=== PATIENT | male | born 1965 | race Caucasian/White ===

== ENCOUNTER 2018-09-27 14:48 | Inpatient (IN) | payer OTHER ==
[2018-09-27] MEDS ORDERED: ACETAMINOPHEN 500 MG TAB PO ONE (15:01)
[2018-09-27] MEDS ORDERED: GABAPENTIN 300 MG CAP PO ONE (15:01)
[2018-09-27] MEDS ORDERED: LIDOCAINE 1% 2 ML INJ ID PRN (15:39)
[2018-09-27] MEDS ORDERED: LR 1,000 ML IV ONE (15:39)
[2018-09-27] MEDS ORDERED: METHOCARBAMOL 750 MG TAB PO PRN (19:20)
[2018-09-27] MEDS ORDERED: ceFAZolin 2 GM/DEXTROSE 100 ML IV ONE (19:30)
[2018-09-27] MEDS: oxyCODONE IR 5 MG TAB PO PRN (21:19)
[2018-09-28] MEDS ORDERED: ACETAMINOPHEN 500 MG TAB PO ONE (06:00)
[2018-09-28] MEDS ORDERED: ceFAZolin 2 GM/DEXTROSE 100 ML IV ONE (06:00)
[2018-09-28] MEDS ORDERED: GABAPENTIN 300 MG CAP PO ONE (06:00)
[2018-09-28] MEDS ORDERED: CEFAZOLIN 330 MG/ML IM SYRINGE IM ONE (06:00)
[2018-09-28] MEDS ORDERED: CHLORHEXIDINE GLUC HIBICLENS 118 ML BTL TP ONE (07:37)
[2018-09-28] MEDS ORDERED: THROMBIN (BOVINE) 5,000 UNIT VIAL TP ONE (07:37)
[2018-09-28] MEDS ORDERED: BUPIVACAINE/EPI 0.25% 30 ML SDV ONE (07:37)
[2018-09-28] MEDS ORDERED: BACITRACIN 50,000 UNITS/10 ML SYR IRR ONE (07:38)
--- NOTE | 2018-09-28 07:47 | PDHPUP ---
History & Physical Update H&P update statement: This history and physical update is based on an assessment of the patient which was completed after admission or registration (within 24 hours), but prior to the surgery/procedure. H&P update: H&P reviewed & patient examined, no change in patient's condition since H&P completed
--- NOTE | 2018-09-28 07:52 | NEUSURGPN ---
Assessment/Plan: Assessment: 53 yo male that is s/p L5/S1 JOEY 6 weeks ago that presents with lower back pain Plan: -lower back pain/hx of L5/S1 JOEY -orders in place for OR today -NPO -spoke with AMINTA Garces on 3E, and will hold abx prior to surgery for cultures if needed -PT/OT on hold -call with any questions or concerns -pt understands and agrees -CBC elevated slightly, ESR and CRP elevated as well Subjective: Awake and alert. NAD. NPO. Pt with continued lower back pain Objective: AAO x 3, PERRLA/EOMI no droop CN 2-12 grossly intact +lt touch 5/5 BUE/BLE = CDI Neuro Check Frequency: per routine Urinary Catheter in Place: No - Physician Discussed Patient with .: Terell Patient Seen by : Terell Neurosurgery Physical Exam - Vitals, I&O, Labs I and O 09/27/18 09/28/18 09/29/18 05:59 05:59 05:59 Weight 99.79 kg Other: Number of Voids Toilet 1 Vital Signs Temp Pulse Resp BP Pulse Ox 36.8 C 60 16 131/88 H 92 09/28/18 04:00 09/28/18 04:00 09/28/18 04:00 09/28/18 04:00 09/28/18 04:00 Laboratory Results 09/27/18 15:01 09/27/18 15:01 ICD10 Worksheet Patient Problems: Problems Problem Status Onset History of laminectomy Acute Lower back pain Acute - ICD10 Problem Qualifiers (1) Lower back pain (2) History of laminectomy
--- NOTE | 2018-09-28 08:18 | PDANEPAE ---
ANE Past Medical History - Cardiovascular History Hx Hypertension: No Hx Arrhythmias: No Hx Chest Pain: No Hx Coronary Artery / Peripheral Vascular Disease: No Hx CHF / Valvular Disease: No Hx Palpitations: No - Pulmonary History Hx COPD: No Hx Asthma/Reactive Airway Disease: No Hx Recent Upper Respiratory Infection: No Hx Oxygen in Use at Home: No Hx Sleep Apnea: Yes Sleep Apnea Screening Result - Last Documented: Positive - Neurologic History Hx Cerebrovascular Accident: No Hx Seizures: No Hx Dementia: No - Endocrine History Hx Diabetes: No - Renal History Hx Renal Disorders: No - Liver History Hx Hepatic Disorders: No - Neurological & Psychiatric Hx Hx Neurological and Psychiatric Disorders: No - Cancer History Hx Cancer: No - Congenital Disorder History Hx Congenital Disorders: No - GI History Hx Gastrointestinal Disorders: No - Chronic Pain History Chronic Pain: No ANE Review of Systems Review of Systems: - Exercise capacity Exercise capacity: >=4 METS METS (RN): 5 METS ANE Patient History - Allergies Allergies/Adverse Reactions: No Allergies Allergy (Verified 09/27/18 14:48) - Home Medications Home medications: home medication list seen and reviewed Home Medications: Gabapentin [Neurontin 300 MG (*)] 300 mg PO TID 09/27/18 [Last Taken 09/27/18 15 :00] Methocarbamol [Robaxin 750 mg (*)] 750 mg PO TID 09/27/18 [Last Taken 09/27/18 08:00] Multivitamins [Multivitamin (*)] 1 each PO DAILY 09/27/18 [Last Taken 09/27/18 12:00] Naproxen Sodium [Aleve 220 MG (*)] 220 - 440 mg PO TID PRN 09/27/18 [Last Taken 09/27/18 08:00] - NPO status NPO Status: no food or drink >8 hours NPO Since - Liquids (Date): 09/28/18 NPO Since - Liquids (Time): 00:00 NPO Since - Solids (Date): 09/28/18 NPO Since - Solids (Time): 00:00 - Anes Hx Anes Hx: no prior problems - Smoking Hx Smoking Status: Never smoked - Family Anes Hx Family Hx Anesthesia Complications: none. ANE Labs/Vital Signs - Labs Result Diagrams: 09/27/18 15:01 09/27/18 15:01 - Vital Signs Vital Signs: reviewed preoperatively; see RN documention for details Blood Pressure: 125/81 Heart Rate: 57 Respiratory Rate: 16 O2 Sat (%): 93 Height: 175.26 cm Weight: 99.79 kg ANE Physical Exam - Airway Neck exam: FROM Mallampati Score: Class 1 Mouth exam: normal dental/mouth exam - Pulmonary Pulmonary: clear to auscultation - Cardiovascular Cardiovascular: regular rate and rhythym - ASA Status ASA Status: I ANE Anesthesia Plan Anesthesia Plan: general endotracheal anesthesia
[2018-09-28] MEDS ORDERED: GABAPENTIN 300 MG CAP ONE (08:38)
[2018-09-28] MEDS ORDERED: ACETAMINOPHEN 500 MG TAB ONE (08:38)
[2018-09-28] MEDS ORDERED: LR 1,000 ML IV ONE (08:46)
[2018-09-28] MEDS ORDERED: MIDAZOLAM 2 MG/2 ML VIAL IVP ONE (09:11)
[2018-09-28] MEDS ORDERED: REMIFENTANIL HCL 1 MG VIAL ONE (09:17)
[2018-09-28] MEDS ORDERED: PROPOFOL/EMULSION 500 MG/50 ML BOTTLE IV ONE ×2 (09:17→10:34)
[2018-09-28] MEDS ORDERED: fentaNYL 250 MCG/5 ML INJ ONE (09:17)
[2018-09-28] MEDS ORDERED: ROCURONIUM 50 MG/5 ML VIAL ONE (09:19)
[2018-09-28] MEDS ORDERED: ONDANSETRON 4 MG/2 ML VIAL ONE (09:22)
[2018-09-28] MEDS ORDERED: PETROLAT,WHT/MIN OIL/SOD CHL 3.5 GM OPHT.OINT ONE (09:22)
[2018-09-28] MEDS ORDERED: DEXAMETHASONE 4 MG/ML VIAL ONE (09:22)
[2018-09-28] MEDS ORDERED: GLYCOPYRROLATE 0.2 MG/1 ML VIAL ONE ×2 (09:23→11:25)
[2018-09-28] MEDS ORDERED: PROPOFOL 200 MG/20 ML VIAL ONE (09:25)
[2018-09-28] MEDS ORDERED: MIDAZOLAM 2 MG/2 ML VIAL ONE (09:26)
[2018-09-28] MEDS ORDERED: ePHEDrine SULFATE 25 MG/5 ML SYR ONE (10:09)
[2018-09-28] MEDS ORDERED: ACETAMINOPHEN 500 MG TAB PO PRN (11:14)
[2018-09-28] MEDS ORDERED: ALBUTEROL 3 ML DEYVIAL IH PRN (11:14)
[2018-09-28] MEDS ORDERED: NALOXONE HCL 0.4 MG/ML INJ IVP PRN (11:14)
[2018-09-28] MEDS ORDERED: LABETALOL HCL 20 MG/4 ML INJ IVP PRN (11:14)
[2018-09-28] MEDS ORDERED: METOCLOPRAMIDE 10 MG/2 ML VIAL IVP PRN (11:14)
[2018-09-28] MEDS ORDERED: DEXAMETHASONE 4 MG/ML VIAL IVP PRN (11:14)
[2018-09-28] MEDS ORDERED: ONDANSETRON 4 MG/2 ML VIAL IVP PRN ×2 (11:14→12:02)
[2018-09-28] MEDS ORDERED: oxyCODONE IR 5 MG TAB PO PRN (11:14)
[2018-09-28] MEDS ORDERED: LR 500 ML IV PRN (11:14)
[2018-09-28] MEDS ORDERED: PROMETHAZINE HCL 25 MG/ML INJ IVP PRN (11:14)
[2018-09-28] MEDS ORDERED: PHENYLEPHRINE HCL 100 MCG/ML SYR IVP PRN (11:14)
[2018-09-28] MEDS ORDERED: MEPERIDINE 25 MG/0.5 ML AMP IVP PRN (11:14)
[2018-09-28] MEDS ORDERED: VANCOMYCIN 1.5 GM in D5W 250 ML IV SCH (11:30)
[2018-09-28] MEDS ORDERED: fentaNYL 100 MCG/2 ML INJ ONE (11:52)
[2018-09-28] MEDS: fentaNYL 100 MCG/2 ML INJ IVP PRN ×2 (11:54→12:09)
[2018-09-28] MEDS ORDERED: diphenhydrAMINE 25 MG CAP PO PRN (11:58)
[2018-09-28] MEDS ORDERED: HYDROmorphONE/DILAUDID 1 MG/ML INJ IVP PRN (11:58)
[2018-09-28] MEDS ORDERED: LACTULOSE 20 GM/30 ML UDCUP PO PRN (11:58)
[2018-09-28] MEDS ORDERED: POLYETHYLENE GLYCOL 3350 17 GM PKT PO PRN (11:58)
[2018-09-28] MEDS ORDERED: BISACODYL 10 MG SUPP PR PRN (11:58)
[2018-09-28] MEDS ORDERED: MAGNESIUM HYDROXIDE 30 ML UDCUP PO PRN (11:58)
[2018-09-28] MEDS ORDERED: NS 1,000 ML IV SCH (12:00)
--- NOTE | 2018-09-28 12:05 | POSTOPPROG ---
Post Op Note Date of Operation: 09/28/18 Surgeon: Cheo Figueredo Insurance Investigator: ELVIN Roberts Anesthesiologist: MD Maria Del Carmen Anesthesia: GET(General Endotracheal), Local (Specify) Pre-op Diagnosis: lumbar spine pain Post-op Diagnosis: lumbar spine pain, possible infection Indication: pain, MRI and labs Procedure: L spine wash out with hx of L5/S1 JOEY Findings: see op report Inf/Abcess present in the surg proc area at time of surgery?: Yes Depth: Deep Incisional (Fascial) EBL: 50-100 Total fluids administered: see anesthesia record Complications: none
--- NOTE | 2018-09-28 12:07 | SOAPPROG ---
SOAP Progress Note Assessment/Plan: Post Op Visit S: Awake and alert. Pt with expected lower back pain O: AFVSS/PERRLA/EOMI no droop CN 2-12 grossly intact +lt touch 5/5 BUE/BLE = CDI A/P: 53 yo male that is s/p L5/S1 washout -suspect infection -cultures and GS pending -spoke with Dr Brooklynn Urbano from ID for an eval -call with any questions or concerns -abx per ID -pt understands and agrees Objective: Vital Signs Temp Pulse Resp BP Pulse Ox 35.6 C L 57 L 16 140/85 H 100 09/28/18 11:36 09/28/18 09:22 09/28/18 09:22 09/28/18 11:39 09/28/18 11:39 Laboratory Results 09/27/18 15:01 09/27/18 15:01 09/27/18 09/28/18 09/29/18 05:59 05:59 05:59 Intake Total 850 Output Total 10 Balance 840 ICD10 Worksheet Patient Problems: Problems Problem Status Onset History of laminectomy Acute Infection of lumbar spine Acute Lower back pain Acute - ICD10 Problem Qualifiers (1) Lower back pain Qualifiers: Chronicity: unspecified (2) History of laminectomy (3) Infection of lumbar spine
[2018-09-28] MEDS ORDERED: HYDROmorphONE/DILAUDID 2 MG/ML INJ ONE (12:40)
[2018-09-28] MEDS: HYDROmorphONE/DILAUDID 2 MG/ML INJ IVP PRN ×2 (12:43→13:06)
--- NOTE | 2018-09-28 13:12 | POSTANESTH ---
Post Anesthetic Evaluation Cardiovascular Status: Normal, Stable Respiratory Status: Normal, Stable Level of Consciousness/Mental Status: Can Participate in Eval Pain Control: Adequate, Prn Tx Ordered Nausea/Vomiting Control: Adequate, Prn Tx Ordered Complications Possibly Related to Anesthesia: None Noted
--- NOTE | 2018-09-28 13:54 | GOP ---
DATE OF OPERATION: 09/27/2018 SURGEON: Joselito Figueredo MD NEUROSURGEON: Joselito Figueredo MD. VP SECURITY: Sanford Roberts PA-C PREOPERATIVE DIAGNOSIS: Recurrent disk herniation, L5-S1. POSTOPERATIVE DIAGNOSIS: Infected recurrent disk herniation, L5-S1. PROCEDURE PERFORMED: Redo lumbar exploration, L5-S1, and recurrent disk herniation, L5-S1 (25356), d rainage of deep subfascial infection lumbar spine (no code assigned to this), microscope, fluoroscopy . FINDINGS: ESTIMATED BLOOD LOSS: 25 cc. DESCRIPTION OF PROCEDURE: Patient was taken to the operating room, placed in supine position. Gener al anesthesia was begun. He was flipped prone onto the Chas frame. Care was taken to pad all poin ts of contact. His incision from the prior surgery was clean, dry, and intact. There was no evidenc e of infection. He was sterilely prepped and draped in usual fashion. We opened the prior incision, extended it rostrally and caudally about 3-4 mm on either side, making it a total length of about an inch and a half. It had previously been about 1 inch long. We used no preoperative antibiotics and no intraoperative antibiotics until cultures were taken. We exposed him by the prior fas cial sutures. These were removed. We then worked our way down to the previous laminotomy at L5-S1, and just above the L5-S1 disk, there was some fluid present that was cloudy and consistent with infec tion. It is unclear whether this represented a true abscess or not, but there was a small amount of fluid there and we cultured this. I then began exposing the S1 root. I could appreciate the S1 root in the lateral recess and drilled a further laminotomy of S1 and a further medial facetectomy of L5- S1 and based upon his MRI this was safe to do. We widened our exposure and swept our way underneath the S1 root under the microscope and some free disc fragment was removed. We took this material out, but there was also a large amount of granulation tissue. It was very unusual, so it was a recurrent disk herniation and we removed the disc, but most of the material on the spinal canal was granulatio n tissue, was not jesus pus, but looked very unusual. There were a few pieces that looked somewhat l ikes snot or mucus coming out, but well organized with some tensile strength. We continued working o ur way under the thecal sac removing this material. We got quite a lot of material out. The disk it self also morphologically was most consistent with infection. The cartilaginous endplates did not ap pear competent, and we removed more of the central disc material. We did not radically remove the ca rtilaginous endplates themselves, but a lot of them just simply fell out as we were cleaning up the d isk space. We sent all of this tissue for specimen to microbiology for both Gram stain and culture a nd will await those results. After culturing all this tissue, we gave the patient 2 g of Ancef. At the conclusion of the case, we had ordered a vancomycin infusion. We irrigated the disk space with l arge amounts of bacitracin, and it was my feeling that this represented an infected recurrent disk at L5-S1. We closed the incision in multiple layers using Vicryl sutures. Our intraoperative findings were consistent with what we had seen on the MRI. He did continue to have chronic bone spurring com ing off the S1 vertebral body pushing into the thecal sac and much of the granulation tissue was loca steven in the space created by this chronic central osteophytic protrusion into the canal. We did not r adically remove this. It was something I could feel with a ball-tip probe, but it was located more i n the central spinal canal at L5-S1. It may prove that in time the patient will need to consider fus ion of his lumbar spine to correct the abnormalities in his back, but we will consult ID and get thei r opinion prior to making any decisions about how to further treat him. COMPLICATIONS: None. INDICATIONS FOR PROCEDURE: This patient is a 53-year-old gentleman who does in fact have a terrible looking lumbar spine with severe disk degenerative changes at L3-4, L4-5, and L5-S1 with spondylolist hesis at L4, L5, S1, who presented to my office a couple of months ago with severe left S1 radiculopa thy and a disk herniation there. The disk herniation was superimposed on chronic spondylosis and DDD at L5-S1. He had a large bone spur coming off the S1 vertebral body. There was also a free disc fr agment herniation. I suggested surgery. He has a significant lateral recess stenosis at L4-5 and fa cet arthropathy, and spondylolisthesis, but our hope was to avoid fusion. It was my feeling that if we sought to do fusion surgery he would likely need to have a 3 level, so it was obviously my hope th at a simple microdiskectomy might help him. He understood my feelings about his lumbar spine and my suggestion of a microdiskectomy, but he also knew he had other larger structural problems in the low back, but he underwent an uncomplicated L5-S1 microdiskectomy. Postoperatively, he did relatively we ll. He was not doing perfectly, but over the last couple weeks, he has developed increasingly just s evere presacral, low back pain with radiating cramping into principally the left calf, but with also a few right-sided symptoms, but his chief complaint is that of severe axial low back pain. He compla ined of no inflammatory reactions. No fevers, no sweats, no chills, and his MRI was read as a large recurrent disk herniation at L5-S1 creating severe stenosis. I thought the MRI looked unusual, could be consistent with infection as there was some fluid in the disk space. It was not entirely clear t o me what we were seeing on the MRI and so we checked some labs. His inflammatory markers were eleva steven. CRP and sedimentation rate were both increased. His white blood cell count was 10.49, and once these labs became apparent, I felt that he was almost certainly infected. We saw him in the office yesterday, and I was doing another surgery and we had booked him for an emergency re-exploration at L 5-S1 yesterday and at the time that we booked him, he was supposed to follow in my room. By the time we finished with our case yesterday, the OR told me there would be a slight delay before starting hi s case, and that is when I first spoke to the patient. He had been n.p.o. all day and was anxious to proceed. I was then later informed that it was going to be 2 hours, which I then later informed the patient that it was going to be 2 hours until we could do it, and as is common, it became clear in a short period of time that it was going to be longer. I was later informed that it was going to be 9 o'clock or later last night to do surgery, and we offered, because of the OR delays and after room c ases (which is a normal part of the operating room experience after hours), that it might be best to simply do his surgery today. The OR did arrange for me to follow myself this morning, and we fed the patient. It was at about the time that we fed the patient that his laboratory values became apparen t that this could represent infection. He had no again systemic complaints and he was doing fine. Fabrice salazar just had severe presacral pain, and he was admitted overnight for pain control for surgery this mor leobardo. I informed him of his laboratory values this morning and expressed my opinion that he might in deed be infected and he was aware of this. The risks of CSF leak, nerve injury, and possible need fo r fusion surgery were discussed. He knew that more extensive surgery may be necessary, and if it was indeed infected, that additional surgery is sometimes needed for that. He wanted to proceed despite the risks. /[id number]/MODL
[2018-09-28] MEDS: oxyCODONE IR 5 MG TAB PO PRN ×3 (14:10→22:34)
[2018-09-28] MEDS: METHOCARBAMOL 750 MG TAB PO SCH ×2 (14:10→21:37)
[2018-09-28] MEDS: GABAPENTIN 300 MG CAP PO SCH ×2 (15:09→21:37)
--- NOTE | 2018-09-28 18:52 | GCON ---
INFECTIOUS DISEASE CONSULTATION. DATE OF CONSULTATION: 09/28/2018 REQUESTING PHYSICIAN: Joselito Figueredo MD REASON FOR CONSULTATION: Postoperative back infection. HISTORY OF PRESENT ILLNESS: The patient is a 53-year-old male who underwent L5-S1 microdiskectomy ap proximately 6 weeks ago, who I am asked to see in consultation for postoperative back infection. The patient describes doing well initially postoperatively but over the last 2 weeks had developed incre asing low back pain. This was not associated with significant radicular symptoms. The pain was such that he could no longer ambulate. He did not have fever, chills or night sweats. He was seen in [facility] by Neurosurgery and noted to have elevated inflammatory markers as well as a mild leukocytosis . An MRI had been performed, which is reported to show recurrent disk herniation at L5-S1 but this w as felt to be unusual in appearance with concern for infection as there was fluid in the disk space. Based on those findings, patient was taken to the operating room earlier today for lumbar exploratio n. Intraoperatively, the patient was noted to have cloudy fluid consistent with infection which trac ked below the fascial layers and deep to the disk space. There were significant amounts of granulati on tissue which had an atypical appearance present. The disk space was felt to be compatible with in fection and central disk material was removed. The patient was given jesse procedure cefazolin and va ncomycin. Gram stains from the operative specimens are all showing presence of a gram-positive cocco bacillus. The patient did not note any problems with incisional healing or wound drainage postoperat ively. Given the above findings, I am now asked to assist in his ongoing management. PAST MEDICAL HISTORY: Degenerative disk disease as above. PAST SURGICAL HISTORY: Microdiskectomy as above. CURRENT MEDICATIONS: Vancomycin 1.5 g IV x1, cefazolin 2 g IV x1, Lovenox 40 mg subcu daily, Pepcid 20 mg p.o. twice daily, Neurontin 300 mg p.o. three times daily, Dilaudid as needed for pain, Robaxin 750 mg p.o. three times daily, morphine as needed for pain. ALLERGIES: No known drug allergies. SOCIAL HISTORY: The patient does not smoke or drink significant alcohol. No recent travel. FAMILY HISTORY: Ovarian cancer. REVIEW OF SYSTEMS: Outside that noted in the HPI, remainder of a 10-system review is unremarkable. PHYSICAL EXAMINATION: VITAL SIGNS: Temperature 36.5, heart rate 67, respiratory rate 14, blood pres sure 144/91, oxygen saturation 94% on room air. GENERAL: Patient is an obese male in no acute distr ess. He appears nontoxic. HEENT: There is no scleral icterus, conjunctival injection, or conjuncti nuno petechiae. Oropharynx shows moist mucous membranes. Dentition is in good repair. There is no n esperanza discharge. There is no tenderness over the frontal maxillary or mastoid area. NECK: Supple wi thout palpable lymphadenopathy or thyromegaly. CHEST: Clear to auscultation bilaterally without adv entitious sounds. Respiratory effort is normal. CARDIOVASCULAR: Regular rate and rhythm without mu rmurs, gallops, or rubs. ABDOMEN: Soft, nontender, nondistended. There is no palpable organomegaly . Bowel sounds are present. MUSCULOSKELETAL: There is no cyanosis, clubbing, or edema. BACK: The re is a surgical dressing in place over the lower lumbar spine. There is no palpable tenderness surr ounding this region. NEUROLOGIC: The patient is alert and interacts appropriately with examiner. C ranial nerves 2-12 are grossly intact. Sensation is grossly intact. Muscle tone and bulk are normal . SKIN: No rashes present. No stigmata of endocarditis. Skin is warm and dry to touch. LYMPHATIC S: No cervical or supraclavicular nodes palpable. LABORATORY DATA: White blood cell count 10.5, hematocrit 43.5, platelets 299, ESR 46, serum creatini ne 0.7, AST 39, ALT 69, bilirubin 0.4, alkaline phosphatase 76, CRP 53.2. Gram stain from the operat concepcion specimens all showing white blood cells and gram-positive coccobacilli. IMPRESSION: 1. Postoperative back infection involving disk space status post incision and drainage: Gram stains are also showing gram-positive coccobacilli. Will await further identification of organism in micro biology lab. Considerations would include typical gram-positive meg, such as Staphylococcus aureus or group A Streptococcus, although morphology is unusual for either of these. P. acnes or corynebac terium species would also be a consideration in the postoperative setting. Corynebacterium striatum would be a consideration as a potential cause of postoperative infection. RECOMMENDATIONS: 1. Vancomycin 1.5 g IV q.12 hours. 2. Await further culture data for identification of bacterial species. 3. Final antibiotic choice will be determined by culture data. Likely he will require 8 weeks of IV antibiotic therapy based on above findings. 4. Risks and benefits of PICC line were discussed with patient. Will await additional culture data prior to placement. 5. Clinical findings and plan were discussed with patient and Dr. Figueredo today. 6. Thank you for this consultation. We will continue to follow the patient with you. /[id number]/MODL
[2018-09-28] MEDS: ACETAMINOPHEN 500 MG TAB PO SCH (21:37)
[2018-09-28] MEDS: FAMOTIDINE 20 MG TAB PO SCH (21:37)
[2018-09-28] MEDS: SENNOSIDES/DOCUSATE SODIUM TAB PO SCH (21:37)
[2018-09-28] MEDS: VANCOMYCIN 1.5 GM in D5W 250 ML IV SCH (21:39)
[2018-09-29 05:10] LABS: PLATELET COUNT 285 10^3/uL (150-400)
[2018-09-29] MEDS: oxyCODONE IR 5 MG TAB PO PRN ×4 (07:15→22:06)
[2018-09-29] MEDS: SENNOSIDES/DOCUSATE SODIUM TAB PO SCH ×2 (08:35→21:57)
[2018-09-29] MEDS: GABAPENTIN 300 MG CAP PO SCH ×3 (08:35→21:59)
[2018-09-29] MEDS: METHOCARBAMOL 750 MG TAB PO SCH ×3 (08:35→21:59)
[2018-09-29] MEDS: FAMOTIDINE 20 MG TAB PO SCH ×2 (08:35→21:59)
[2018-09-29] MEDS: VANCOMYCIN 1.5 GM in D5W 250 ML IV SCH ×2 (09:06→22:06)
[2018-09-29] MEDS: ACETAMINOPHEN 500 MG TAB PO SCH ×3 (09:07→21:58)
--- NOTE | 2018-09-29 09:36 | NEUSURGPN ---
Assessment/Plan: Assessment: 53 yo male that is s/p L5/S1 JOEY 6 weeks ago that presents with lower back pain now POD1 from exploration for recurrent dis herniation and washout L5/S1 Plan: -lower back pain/hx of L5/S1 JOEY -Gram stain shows gram + coccibacilli, appreciate ID consultation and recommendation for abx. Final cx pending, -call with any questions or concerns -pt understands and agrees -Optimize pain management Subjective: low incisional site tenderness Objective: AAO x 3, PERRLA/EOMI no droop CN 2-12 grossly intact +lt touch 5/5 BUE/BLE = CDI Neurosurgery Physical Exam - Vitals, I&O, Labs I and O 09/28/18 09/29/18 09/30/18 05:59 05:59 05:59 Intake Total 3000 Output Total 760 Balance 2240 Weight 99.79 kg 99.79 kg Intake: Oral (ml) 2150 IV Intake (ml) 850 Output: Urine (ml) 750 Toilet 750 Estimated Blood Loss (ml) 10 Other: Intake Quantity Yes Sufficient Number of Voids Toilet 1 4 Number of Stools Toilet 0 Microbiology 09/28/18 10:10 Gram Stain - Final Back - Tissue 09/28/18 10:10 Gram Stain - Final Back - Eswab 09/28/18 10:10 Gram Stain - Final Back - Eswab Vital Signs Temp Pulse Resp BP Pulse Ox 37.1 C 71 16 147/93 H 94 09/29/18 08:00 09/29/18 08:00 09/29/18 08:00 09/29/18 08:00 09/29/18 08:00 Laboratory Results 09/29/18 04:26 09/29/18 04:26 ICD10 Worksheet Patient Problems: Problems Problem Status Onset History of laminectomy Acute Infection of lumbar spine Acute Lower back pain Acute
--- NOTE | 2018-09-29 14:09 | ASMTCMCOM ---
CM Note CM Note Notes: Pt is a 53 y/o man admitted for a lumber incision/drainage. Pt has a lumbar infection. Pt had a L5 - S1 a couple of weeks ago. Therapies have cleared pt without any needs. ID is consulting on this case. Pt is currently on iv vanco. Pt will most likely need ivabx for 8 weeks. Referral sent to [facility]. [facility] accept. Sonia sylvester/ [facility] met w/ pt. Additional referrals sent to HC agencies. Pt has 'all savers' for insurance. CM to follow. Plan: [facility] FONG; RN Date Signed: 09/29/2018 02:08 PM Electronically Signed By:SUSIE Whittington
--- NOTE | 2018-09-29 14:58 | ASMTCMCOM ---
CM Note CM Note Notes: 23/05 [facility] is able to accept to admin ivabx. 23/05 [facility] has been in contact w/ [facility]. Date Signed: 09/29/2018 02:58 PM Electronically Signed By:SUSIE Whittington
--- NOTE | 2018-09-29 15:27 | PDMN ---
Medical Necessity Medical necessity: [facility] general admission: lumbar infection OP: deep incisional Lumbar spine washout with hx of L5/S1 JOEY Id consult completed : need for IV abx- PICC line needs to be placed - awaiting cultures, status changed to INPT 09/29/18 for ongoing med nec.
--- NOTE | 2018-09-29 15:47 | PCMIDPN ---
Assessment/Plan: Assessment: Postoperative back infection. Coccobacilli seen on all Gram stains of operative samples. Cultures are not growing yet. Will continue on empiric IV vancomycin at present. Clinically the patient is stable. Plan: 1. Continue IV vancomycin at present dose. 2. Obtain Vanco trough prior to the 4th dose. 3. Follow up on culture data 09/29/18 15:45 Subjective: Patient is resting in his bed in his hospital room. He has been walking around the halls earlier today. Continued back pain which he suspects is postoperative. No fevers or chills. Objective: Vancomycin # 1 Vital Signs Temp Pulse Resp BP Pulse Ox 37.0 C 59 L 16 142/98 H 92 09/29/18 12:00 09/29/18 12:00 09/29/18 12:00 09/29/18 12:00 09/29/18 12:00 Microbiology 09/28/18 10:10 Gram Stain - Final Back - Tissue 09/28/18 10:10 Gram Stain - Final Back - Eswab 09/28/18 10:10 Gram Stain - Final Back - Eswab Laboratory Results 09/29/18 04:26 09/29/18 04:26 09/28/18 09/29/18 09/30/18 05:59 05:59 05:59 Intake Total 3000 Output Total 760 Balance 2240 ESR 46 MM/HR (0-20) H 09/27/18 15:01 C-Reactive Protein 53.2 mg/L (<10.0) H 09/27/18 15:01 - Physical Exam General Appearance: WD/WN, alert, no apparent distress, non-toxic Respiratory: lungs clear, normal breath sounds, No respiratory distress Cardiac/Chest: regular rate, rhythm, No tachycardia Skin: normal color, warm/dry, No rash Neuro/Psych: alert, normal mood/affect, oriented x 3 ICD10 Worksheet Patient Problems: Problems Problem Status Onset History of laminectomy Acute Infection of lumbar spine Acute Lower back pain Acute
--- NOTE | 2018-09-30 08:11 | NEUSURGPN ---
Assessment/Plan: Assessment: 53 yo male that is s/p L5/S1 JOEY 6 weeks ago that presents with lower back pain now POD2 from exploration for recurrent disc herniation and washout L5/S1 Plan: -lower back pain/hx of L5/S1 JOEY -optimize pain management. -Gram stain shows gram + coccibacilli, appreciate ID consultation and recommendation for abx. Final cx pending, NGTD -continue Vanc per ID, plan PICC today -Pt ready to DC once abx finalized, appreciate ID recs -call with any questions or concerns dw Dr. Figueredo. Subjective: no weakness, numbness, tingling. pain significant but controlled. wants to go home but also concerned that he wont be able to take care of himself at home as he lives alone. Objective: NAD AAOx4 VSS PEARLA MAEx4, 03/04= SILT incision CDI - Physician Discussed Patient with : Terell Neurosurgery Physical Exam - Vitals, I&O, Labs I and O 09/29/18 09/30/18 10/01/18 05:59 05:59 05:59 Intake Total 3000 1300 Output Total 760 Balance 2240 1300 Weight 99.79 kg Intake: Oral (ml) 2150 1300 IV Intake (ml) 850 Output: Urine (ml) 750 Toilet 750 Estimated Blood Loss (ml) 10 Other: Intake Quantity Yes Sufficient Number of Voids Toilet 4 4 Number of Stools Toilet 0 Microbiology 09/28/18 10:10 Gram Stain - Final Back - Tissue 09/28/18 10:10 Gram Stain - Final Back - Eswab 09/28/18 10:10 Gram Stain - Final Back - Eswab Vital Signs Temp Pulse Resp BP Pulse Ox 36.8 C 68 16 153/93 H 93 09/29/18 23:10 09/29/18 23:10 09/29/18 23:10 09/29/18 23:10 09/29/18 23:10 Laboratory Results 09/29/18 04:26 09/29/18 04:26 ICD10 Worksheet Patient Problems: Problems Problem Status Onset History of laminectomy Acute Infection of lumbar spine Acute Lower back pain Acute
[2018-09-30] MEDS: METHOCARBAMOL 750 MG TAB PO SCH ×3 (08:43→21:57)
[2018-09-30] MEDS: oxyCODONE IR 5 MG TAB PO PRN ×4 (08:43→21:57)
[2018-09-30] MEDS: GABAPENTIN 300 MG CAP PO SCH ×3 (08:43→21:57)
[2018-09-30] MEDS: FAMOTIDINE 20 MG TAB PO SCH ×2 (08:44→21:58)
[2018-09-30] MEDS: SENNOSIDES/DOCUSATE SODIUM TAB PO SCH ×2 (08:44→21:56)
[2018-09-30] MEDS: ACETAMINOPHEN 500 MG TAB PO SCH ×3 (09:50→21:56)
[2018-09-30] MEDS: VANCOMYCIN 1.5 GM in D5W 250 ML IV SCH ×2 (09:50→21:56)
[2018-09-30] MEDS ORDERED: ALTEPLASE 2 MG VIAL IVP PRN (11:22)
--- NOTE | 2018-09-30 12:23 | ASMTCMCOM ---
CM Note CM Note Notes: Pt's medical status has changed due to him requiring endovascular aortic repair. Hospitalist is requesting SNF. Pt is asleep and CM unable to arouse him to discuss possible SNF's with him. Family arriving this afternoon. Referrals will be sent out now with perhaps other's added after CM can speak to pt and family. D/C Plan: SNF Date Signed: 09/30/2018 12:23 PM Electronically Signed By:Sarah oDminguez
--- NOTE | 2018-09-30 16:35 | PCMIDPN ---
Assessment/Plan: Assessment: Postoperative back infection following a micro diskectomy. Coccobacilli seen on all Gram stains of operative samples. Morphology most closely resembles C. acnes. This may require a few more days in culture. Cultures are not growing yet. Will continue on empiric IV vancomycin at present. Clinically the patient is stable. Options for treatment include IV vancomycin or daptomycin. Plan: 1. Continue IV vancomycin at present dose. 2. Obtain Vanco trough prior to the 4th dose. 3. Follow up on culture data Subjective: Patient is resting in his hospital bed. He woke up this morning and some significant pain. This is under control by lunchtime. No fevers or chills. Able to ambulate around the hallway. Patient does live alone and independently. His sister is coming in on Tuesday to help take care of him during his convalescence. Objective: Vancomycin # 2 Vital Signs Temp Pulse Resp BP Pulse Ox 36.5 C 74 16 144/103 H 96 09/30/18 15:44 09/30/18 15:44 09/30/18 15:44 09/30/18 15:44 09/30/18 15:44 Microbiology 09/28/18 10:10 Gram Stain - Final Back - Tissue 09/28/18 10:10 Gram Stain - Final Back - Eswab 09/28/18 10:10 Gram Stain - Final Back - Eswab Laboratory Results 09/29/18 04:26 09/29/18 04:26 09/29/18 09/30/18 10/01/18 05:59 05:59 05:59 Intake Total 3000 1300 Output Total 760 Balance 2240 1300 ESR 46 MM/HR (0-20) H 09/27/18 15:01 C-Reactive Protein 53.2 mg/L (<10.0) H 09/27/18 15:01 - Physical Exam General Appearance: WD/WN, alert, no apparent distress, non-toxic Respiratory: lungs clear, normal breath sounds, No respiratory distress Cardiac/Chest: regular rate, rhythm, No tachycardia Skin: normal color, warm/dry, No rash Neuro/Psych: alert, normal mood/affect, oriented x 3 ICD10 Worksheet Patient Problems: Problems Problem Status Onset History of laminectomy Acute Infection of lumbar spine Acute Lower back pain Acute
[2018-10-01] MEDS: oxyCODONE IR 5 MG TAB PO PRN ×5 (04:53→22:12)
[2018-10-01] MEDS: ENOXAPARIN 40 MG/0.4 ML SYR SC SCH (08:41)
[2018-10-01] MEDS: FAMOTIDINE 20 MG TAB PO SCH ×2 (08:42→21:44)
[2018-10-01] MEDS: VANCOMYCIN 1.5 GM in D5W 250 ML IV SCH ×2 (08:42→22:04)
[2018-10-01] MEDS: SENNOSIDES/DOCUSATE SODIUM TAB PO SCH ×2 (08:42→21:44)
[2018-10-01] MEDS: METHOCARBAMOL 750 MG TAB PO SCH ×3 (08:42→21:44)
[2018-10-01] MEDS: GABAPENTIN 300 MG CAP PO SCH ×3 (08:42→21:44)
[2018-10-01] MEDS: ACETAMINOPHEN 500 MG TAB PO SCH ×3 (10:01→22:04)
--- NOTE | 2018-10-01 13:58 | NEUSURGPN ---
Assessment/Plan: Assessment: 53 yo male that is s/p L5/S1 JOEY 6 weeks ago that presents with lower back pain now POD3 from exploration for recurrent disc herniation and washout L5/S1 Plan: -lower back pain/hx of L5/S1 JOEY -optimize pain management. -Gram stain shows gram + coccibacilli, appreciate ID consultation and recommendation for abx. Final cx pending,ID suspect C. acnes which is slow growing. -continue Vanc per ID, picc placed -Pt ready to DC once abx finalized, appreciate ID recs, likely tomorrow -call with any questions or concerns dw Dr. Figueredo. Subjective: low back pain improved slightly today. Doing better with pain control. Objective: NAD AAOx4 VSS PEARLA MAEx4, 5/5= SILT incision CDI - Physician Discussed Patient with : Terell Neurosurgery Physical Exam - Vitals, I&O, Labs I and O 09/30/18 10/01/18 10/02/18 05:59 05:59 05:59 Intake Total 1300 3000 500 Balance 1300 3000 500 Intake: Oral (ml) 1300 2500 500 IV Infused (ml) 500 Vancomycin 1.5 gm In D5w 500 250 ml @ 166.67 mls/hr IV Q12H [facility] Rx#:[id number] Other: Intake Quantity Yes Sufficient Number of Voids Toilet 4 3 Microbiology 09/28/18 10:10 Gram Stain - Final Back - Eswab 09/28/18 10:10 Gram Stain - Final Back - Eswab 09/28/18 10:10 Gram Stain - Final Back - Tissue Vital Signs Temp Pulse Resp BP Pulse Ox 36.9 C 76 16 142/91 H 96 10/01/18 07:57 10/01/18 07:57 10/01/18 07:57 10/01/18 07:57 10/01/18 07:57 Laboratory Results 09/29/18 04:26 10/01/18 04:55 ICD10 Worksheet Patient Problems: Problems Problem Status Onset History of laminectomy Acute Infection of lumbar spine Acute Lower back pain Acute
--- NOTE | 2018-10-01 15:11 | PCMIDPN ---
Assessment/Plan: Assessment: Postoperative back infection following a micro diskectomy. Coccobacilli seen on all Gram stains of operative samples. Morphology most closely resembles C. acnes. Cultures are growing gram-positive anaerobic rods. Will continue on empiric IV vancomycin at present. Clinically the patient is stable. Options for treatment include IV vancomycin or daptomycin. Plan: 1. Continue IV vancomycin at present dose. 2. Follow up on culture data 10/01/18 15:08 Subjective: Patient is ambulating around his room. No new complaints. No fevers or chills. Objective: Vancomycin # 3 Vital Signs Temp Pulse Resp BP Pulse Ox 36.9 C 76 16 142/91 H 96 10/01/18 07:57 10/01/18 07:57 10/01/18 07:57 10/01/18 07:57 10/01/18 07:57 Microbiology 09/28/18 10:10 Gram Stain - Final Back - Eswab 09/28/18 10:10 Gram Stain - Final Back - Eswab 09/28/18 10:10 Gram Stain - Final Back - Tissue Laboratory Results 09/29/18 04:26 10/01/18 04:55 09/30/18 10/01/18 10/02/18 05:59 05:59 05:59 Intake Total 1300 3000 500 Balance 1300 3000 500 ESR 46 MM/HR (0-20) H 09/27/18 15:01 C-Reactive Protein 53.2 mg/L (<10.0) H 09/27/18 15:01 - Physical Exam General Appearance: WD/WN, alert, no apparent distress, non-toxic Respiratory: lungs clear, normal breath sounds Cardiac/Chest: regular rate, rhythm, No tachycardia Skin: normal color, warm/dry, No rash Neuro/Psych: alert, normal mood/affect, oriented x 3 ICD10 Worksheet Patient Problems: Problems Problem Status Onset History of laminectomy Acute Infection of lumbar spine Acute Lower back pain Acute
[2018-10-02] MEDS: oxyCODONE IR 5 MG TAB PO PRN ×3 (01:13→13:02)
[2018-10-02 07:34] VITALS: BP 142/88
--- NOTE | 2018-10-02 08:00 | NEUSURGPN ---
Date of Surgery: 09/28/18 Post Op Day: 4 Assessment/Plan: Assessment: 53 yo male that is s/p L5/S1 JOEY 6 weeks ago that presents with lower back pain now POD#4 from exploration for recurrent disc herniation and washout L5/S1 Plan: -lower back pain/hx of L5/S1 JOEY-better with pain medications -optimize pain management with current plan-doing ok -Gram stain shows gram + coccibacilli, appreciate ID consultation and recommendation for abx. Final cx pending, ID suspect ?P. acnes which is slow growing -continue Vanc per ID, PICC placed already -Pt ready to DC once abx finalized, appreciate ID recs, likely today-RN to call me once cleared and I can work on dc -call with any questions or concerns -d/w and seen by Dr. Figueredo -pt understands and agrees Subjective: Awake and alert. Pt stated pain is better. No tabor/neck/chest/abd or gu complaints. No f/c/n/v/d. Objective: NAD/AAOx4 VSS PEARLA/EOMI no droop MAEx4, 5/5= SILT incision CDI Neuro Check Frequency: per routine Urinary Catheter in Place: No - Physician Discussed Patient with : Terell Patient Seen by : Terell Neurosurgery Physical Exam - Vitals, I&O, Labs I and O 10/01/18 10/02/18 10/03/18 05:59 05:59 05:59 Intake Total 3000 2000 Balance 3000 2000 Intake: Oral (ml) 2500 2000 IV Infused (ml) 500 Vancomycin 1.5 gm In D5w 500 250 ml @ 166.67 mls/hr IV Q12H [facility] Rx#:[id number] Other: Intake Quantity Yes Sufficient Number of Voids Toilet 3 3 Microbiology 09/28/18 10:10 Gram Stain - Final Back - Eswab 09/28/18 10:10 Gram Stain - Final Back - Eswab 09/28/18 10:10 Gram Stain - Final Back - Tissue Vital Signs Temp Pulse Resp BP Pulse Ox 36.6 C 79 14 142/88 H 95 10/02/18 07:33 10/02/18 07:33 10/02/18 07:33 10/02/18 07:33 10/02/18 07:33 Laboratory Results 09/29/18 04:26 10/01/18 04:55 ICD10 Worksheet Patient Problems: Problems Problem Status Onset History of laminectomy Acute Infection of lumbar spine Acute Lower back pain Acute - ICD10 Problem Qualifiers (1) Lower back pain Qualifiers: Chronicity: unspecified (2) History of laminectomy (3) Infection of lumbar spine
[2018-10-02] MEDS: ACETAMINOPHEN 500 MG TAB PO SCH (08:10)
[2018-10-02] MEDS: ENOXAPARIN 40 MG/0.4 ML SYR SC SCH (08:11)
[2018-10-02] MEDS: FAMOTIDINE 20 MG TAB PO SCH (08:11)
[2018-10-02] MEDS: METHOCARBAMOL 750 MG TAB PO SCH (08:11)
[2018-10-02] MEDS: GABAPENTIN 300 MG CAP PO SCH (08:12)
[2018-10-02] MEDS: SENNOSIDES/DOCUSATE SODIUM TAB PO SCH (08:12)
[2018-10-02] MEDS: VANCOMYCIN 1.5 GM in D5W 250 ML IV SCH (08:19)
--- NOTE | 2018-10-02 09:17 | PDIAF ---
- Diagnosis Diagnosis: Postoperative back infection Code Status: Full Code - Medication Management Penitentiary Antibiotics: Ceftriaxone 2 g IV Q [employer] Antibiotic Stop Date: 11/23/17 Discharge Medications: electronically signed and located in the Home Medication List. PICC Care - Routine: Yes - Labs/Radiology CBC w/diff Date: 10/04/18 (Weekly Q Tuesday) CMP Date: 10/04/18 (Weekly Q Tuesday) CRP Date: 10/04/18 (Weekly Q Tuesday) - Follow Up Care Current Providers and Referrals: Cheo Figueredo MD [Medical Doctor] - NONE *PRIMARY CARE P,. [Unknown] - Alvaro Urbano MD [Medical Doctor] - 10/10/18 1:00 pm
--- NOTE | 2018-10-02 09:33 | PCMIDPN ---
Assessment/Plan: Assessment/Plan: * Postoperative back infection status post incision and drainage: Cultures with growth of anaerobic gram-positive beltran. Most likely this represents P. acnes. Will therefore transition vancomycin to ceftriaxone for daily administration as outpatient. Side effects of ceftriaxone including allergic reactions, skin rash, drug fever, biliary sludging, and potential for changes in blood count/liver tests/kidney test discussed with patient today. Plan weekly laboratory monitoring with CBC, CMP and C-reactive protein. Patient will follow-up in my office next week as outlined in interagency discharge plan. 10/02/18 09:29 Subjective: Patient feels overall improved. Pain controlled with oral pain medications. Still with some numbness in left foot with ambulation. Objective: Vital Signs Temp Pulse Resp BP Pulse Ox 36.6 C 79 14 142/88 H 95 10/02/18 07:33 10/02/18 07:33 10/02/18 07:33 10/02/18 07:33 10/02/18 07:33 Microbiology 09/28/18 10:10 Gram Stain - Final Back - Eswab 09/28/18 10:10 Gram Stain - Final Back - Eswab 09/28/18 10:10 Gram Stain - Final Back - Tissue Laboratory Results 09/29/18 04:26 10/01/18 04:55 10/01/18 10/02/18 10/03/18 05:59 05:59 05:59 Intake Total 3000 2000 Balance 3000 2000 ESR 46 MM/HR (0-20) H 09/27/18 15:01 C-Reactive Protein 53.2 mg/L (<10.0) H 09/27/18 15:01 Vancomycin #4 Operative cultures with growth of anaerobic gram-positive beltran (final identification pending) - Physical Exam General Appearance: alert, no apparent distress EENT: No scleral icterus, No thrush Respiratory: lungs clear, No respiratory distress Cardiac/Chest: regular rate, rhythm, No systolic murmur Abdomen: non-tender, No distended Back: other (Mild tenderness around dressing) Skin: No rash - Line/s RUE PICC Lines: No drainage, No erythema ICD10 Worksheet Patient Problems: Problems Problem Status Onset History of laminectomy Acute Infection of lumbar spine Acute Lower back pain Acute
--- NOTE | 2018-10-02 11:13 | ASMTLACE ---
LAUREEN Length of stay for Answers: 3 days current admission Acuity / Level of Answers: Yes Care: Did the patient have an inpatient admission? # of Emergency department Answers: 0 visits in the last 6 months Score: 6 Date Signed: 10/02/2018 11:12 AM Electronically Signed By:Karen Rodriguez RN
--- NOTE | 2018-10-02 11:17 | ASMTDCNOTE ---
Case Management Discharge Discharge Order Complete? Answers: Yes Patient to Obtain Answers: Independently Medications Transportation Arranged Answers: Family/Friends Case Management Transport Answers: Yes Form Complete Faxed Final Orders Answers: Yes Discharge Comments Notes: Patient discharged home with [facility] and [facility]. ORders sent to both agencies. to transport home. Date Signed: 10/02/2018 11:16 AM Electronically Signed By:Karen Rodriguez RN
--- NOTE | 2018-10-03 11:03 | ASDISCHSUM ---
Discharge Information Plan Status:Has needs-TBD Medically Cleared to Leave: Discharge Date:10/02/2018 03:02 PM CM D/C Disposition: ADT D/C Disposition:Home Health Service Projected Discharge Date:09/30/2018 11:00 AM Transportation at D/C: Discharge Delay Reason: Follow-Up Date:09/30/2018 11:00 AM Discharge Slot: Final Diagnosis: Placement Information Referral Type:Home Infusion Referral ID:[id number] Provider Name:[facility] [place] Address 1:[address] Address 2: City:[place] Selection Factors: State:[place] Referral Type:*Home Health Care Services Referral ID:[id number] Provider Name:[facility] [place] Address 1:[address] Phone Number: Address 2: Fax Number: City:[place] Selection Factors: State:[place] Referral Type:*Fpc/SNF Referral ID:[id number] Provider Name: Address 1: Phone Number: Address 2: Fax Number: City: Selection Factors: State: Patient Contact Information Contact Name:ANISA Relationship: Address:[address] Work Phone: City:[place] Alternate Phone: [facility]/Zip Code:[place] [address] Email: Financial Information Financial Class:HMO and PPO Plans Primary Plan Desc:KAREN YANG Primary Plan Number:[id number] Secondary Plan Desc: Secondary Plan Number: Assessment Information LACE LACE Length of stay for Answers: 3 days current admission Acuity / Level of Answers: Yes Care: Did the patient have an inpatient admission? # of Emergency department Answers: 0 visits in the last 6 months Score: 6 Date Signed: 10/02/2018 11:12 AM Electronically Signed By:Karen Rodriguez RN [facility] CM Progress Note CM Note CM Note Notes: Pt is a 53 y/o man admitted for a lumber incision/drainage. Pt has a lumbar infection. Pt had a L5 - S1 a couple of weeks ago. Therapies have cleared pt without any needs. ID is consulting on this case. Pt is currently on iv vanco. Pt will most likely need ivabx for 8 weeks. Referral sent to [facility]. [facility] able to accept. Sonia Constantino met w/ pt. Additional referrals sent to HC agencies. Pt has 'all savers' for insurance. CM to follow. Plan: [facility] ; RN Date Signed: 09/29/2018 02:08 PM Electronically Signed By:SUSIE Whittington [facility] CM Progress Note CM Note CM Note Notes: [facility] is able to accept to admin ivabx. [facility] has been in contact w/ [facility]. Date Signed: 09/29/2018 02:58 PM Electronically Signed By:SUSIE Whittington [facility] CM Progress Note CM Note CM Note Notes: Pt's medical status has changed due to him requiring endovascular aortic repair. Hospitalist is requesting SNF. Pt is asleep and CM unable to arouse him to discuss possible SNF's with him. Family arriving this afternoon. Referrals will be sent out now with perhaps other's added after CM can speak to pt and family. D/C Plan: SNF Date Signed: 09/30/2018 12:23 PM Electronically Signed By:Sarah Dominguez Case Management Discharge Plan Note Case Management Discharge Discharge Order Complete? Answers: Yes Patient to Obtain Answers: Independently Medications Transportation Arranged Answers: Family/Friends Case Management Transport Answers: Yes Form Complete Faxed Final Orders Answers: Yes Discharge Comments Notes: Patient discharged home with [facility] and [facility]. ORders sent to both agencies. to transport home. Date Signed: 10/02/2018 11:16 AM Electronically Signed By:Karen Rodriguez RN Intervention Information
== END 2018-10-02 15:02 | disposition home health service (06) | DRG 858 ==
LOC: FSGY 14:48 → F3N 18:19 → F3E 20:03 → F3N 09-28 13:16 → OBSVTOIN 09-29 15:12
PROVIDERS: ADMIT Neurological Surgery; ATTEND Neurological Surgery
PROC: 01NR0ZZ Release Sacral Nerve, Open Approach (ICD-10-PCS; principal; 2018-09-28 11:45)
PROC: 0ST40ZZ Resection of Lumbosacral Disc, Open Approach (ICD-10-PCS; principal; 2018-09-28 11:45)
PROC: 0SC Lower Joints, Extirpation (ICD-10-PCS; principal; 2018-09-28 11:45)
PROC: 02HV33Z Insertion of Infusion Device into Superior Vena Cava, Percutaneous Approach (ICD-10-PCS; 2018-09-30)
DX: T81.42XA Infection following a procedure, deep incisional surgical site, initial encounter (principal); M51.27 Other intervertebral disc displacement, lumbosacral region; Z98.1 Arthrodesis status
CPT/HCPCS: 97161-GP; 97165-GO; C1751; G0378; J0690; J0696; J1100; J1170; J1650; J2250; J2405; J2704; J3010; J3370